=== PATIENT | female | born 1965 | race Asian ===

== ENCOUNTER 2019-08-08 00:48 | Emergency (ER) | payer OTHER ==
[~2019-08-08] VITALS: Ht 152.4 cm; Wt 56.7 kg
[2019-08-08 00:54] VITALS: BP 185/110
--- NOTE | 2019-08-08 01:01 | NUR ---
PT AMBULATED TO BED 03.
--- NOTE | 2019-08-08 01:04 | NUR ---
MADE AWRE OF PT STATUS
--- NOTE | 2019-08-08 01:19 | NUR ---
53 Y/O F PRESENTS TO ED WITH C/O ELEVATED BLOOD PRESSURE X1HOUR. AAOX4. PT SELF MEDICATED WITH ATORVASTATIN P5OARAG [employer]. PT HAS HX OF HTN AND HYPERLIDEMIA BUT NON-COMPLIANT WITH MEDICATIONS. PER PT "I ONLY TAKE MY MEDICATION WHEN I START TO GET A HEADACHE." BP 176/102 AND HR 80. PT TOOK [place] 12.5MG YESTERDAY MORNING. SECONDARY C/O L SIDE FACIAL NUMBESS. PT ATTACHED TO MONITORING SYSTEM. ERMD MADE AWARE OF PT STATUS. FAMILY AT BEDSIDE. WILL CONTINUE TO MONITOR PT CONDITON.
--- NOTE | 2019-08-08 01:20 | NUR ---
RISKS AND BENEFITS EXPLAINED TO PT REGARDING COMPLIANCE OF HYPERTENSION MEDICAITON. PT STATED SHE UNDERSTOOD.
[2019-08-08 02:22] VITALS: BP 142/94
--- NOTE | 2019-08-08 02:30 | NUR ---
PT BP DECREASED TO 142/94. DR. MARIE MADE AWARE.
--- NOTE | 2019-08-08 02:47 | NUR ---
DR. MARIE AT BEDSIDE.
--- NOTE | 2019-08-08 03:01 | NUR ---
Patient discharged with v/s stable. Written and verbal after care instructions given and explained. Patient verbalized understanding. Ambulatory with steady gait. All questions addressed prior to discharge. Advised to follow up with PMD.
== END 2019-08-08 03:01 | disposition home or self-care (01) ==
LOC: MED 00:48
DX: I10 Essential (primary) hypertension (principal); E78.5 Hyperlipidemia, unspecified
CPT/HCPCS: 99281